=== PATIENT | female | born 1970 | race Caucasian/White ===

== ENCOUNTER 2017-12-20 04:44 | Emergency (ER) | payer OTHER ==
[~2017-12-20] VITALS: Ht 157.5 cm; Wt 71.7 kg
[~2017-12-20 04:44] MED LIST: ARIP10 PO; CODBUTACEC PO; CYCL10 PO; NAPR500EC PO; PROC10 PO
== END 2017-12-20 05:30 | disposition home or self-care (01) ==
LOC: ER 04:44
DX: S09.90XA Unspecified injury of head, initial encounter (principal); Z88.8 Allergy status to other drugs, medicaments and biological substances; W22.8XXA Striking against or struck by other objects, initial encounter
CPT/HCPCS: 99283